=== PATIENT | female | born 1955 | race Hispanic/Latino ===

== ENCOUNTER 2017-11-09 09:44 | Emergency (ER) | payer OTHER ==
[2017-11-09 09:49] VITALS: BMI 27.1
[2017-11-09 09:52] VITALS: PULSE 70; RESP 17; TEMP 98.1; O2SAT 99
--- NOTE | 2017-11-09 10:49 | RAD ---
PROCEDURE: Radiographs of the Lumbar Spine. HISTORY: LOWER BACK PAIN COMPARISON: No prior. FINDINGS: BONES: Minimal spondylolisthesis appreciated L4-5 with L4 anterior to L5 only a few mm. This appears to be on the basis of facet joint degenerative arthropathy though spondylolysis not completely excluded. Lumbar curvature is otherwise unremarkable. Vertebral body heights are normal with no wedge fracture evident. Multilevel inferior facet joint arthropathy noted. DISC SPACES: Mild disc height loss is seen at L4-5 remaining intervertebral disc heights normal. OTHER FINDINGS: Mid to distal abdominal aortic atherosclerosis identified. IMPRESSION: Minimal grade 1 spondylolisthesis L4-5 likely on the basis of facet arthropathy. CT or MRI can be utilized for further characterization of posterior elements and for potential spinal stenosis, as clinically warranted. Multilevel inferior lumbar facet joint arthropathy. Findings discussed with the patient.
[2017-11-09 11:01] VITALS: BP 148/78
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
== END 2017-11-09 12:13 | disposition home or self-care (01) ==
LOC: H.ER 09:44
DX: M54.5 Low back pain (principal); Z04.3 Encounter for examination and observation following other accident; V49.40XA Driver injured in collision with unspecified motor vehicles in traffic accident, initial encounter